=== PATIENT | female | born 1985 | race Caucasian/White ===

== ENCOUNTER 2019-01-15 18:55 | Inpatient (IN) | payer OTHER, SELFPAY ==
[2018-11-09 17:55] VITALS: BMI 39.7
[2019-01-15 19:35] VITALS: BMI 40.8
[2019-01-15] MEDS: Lactated Ringers 1,000 ML 50 ML IV ×2 (19:40→23:09)
[2019-01-15 19:59] LABS: Absolute Lymphocyte Count 1.48 X10^3/ul (0.83-4.51); Absolute Neutrophil Count 9.1 X10^3/uL (2.0-7.7); Basophil# 0.01 X10^3/uL; Basophil% 0.1 % (0-1); Eosinophil# 0.13 X10^3/uL; Eosinophils% 1.1 % (0-5); Hematocrit 32.3 % (37-47); Lymphocyte # 1.48 X10^3/ul (4.0); Lymphocyte % 12.5 % (19-41); Mean Corpuscular Hgb 22.3 pg (27.0-32.0); Mean Corpuscular Volume 72.1 fL (81-99); Mean Platelet Vol. 10.4 fl (6.2-12.0); Monocyte# 1.09 X10^3/uL; Monocyte% 9.2 % (0-10); Neutrophil # 9.07 X10^3/uL (2.7-7.7); Neutrophil % 76.8 % (47-70); POSITIVE COUNT NO; POSITIVE DIFFERENTIAL NO; POSITIVE MORPHOLOGY NO; Platelet Count 193 K/mm3 (150-450); RBC Distribution Width CV 16.4 % (11.6-14.6); RBC Distribution Width SD 43.5 fl (35.1-43.9); Red Blood Count 4.48 M/mm3 (4.2-5.4); White Blood Count 11.8 K/mm3 (4.4-11.0)
[2019-01-15] MEDS: 0.9% Normal Saline 100 ML IV.SOLN. INTRA-UTER (20:13)
--- NOTE | 2019-01-15 20:20 | HP.PCM_ITS ---
History Date of Admission: 01/15/19 Final RODNEY: 01/11/19 Final RODNEY Source: US <20 weeks Gestational age: 40 Weeks and 4 Days History of this : This is a 33 year-old, G [], P [], at 40 weeks gestational age. Medical History: Medical History (Last Updated 11/09/18 @ 20:46 by ISABELA Roche) GERD (gastroesophageal reflux disease) K21.9 Seasonal allergic rhinitis due to pollen J30.1 Allergies shellfish derived Allergy (Severe, Verified 01/15/19 19:31) Anaphylaxis amoxicillin Adverse Reaction (Verified 01/15/19 19:31) DEVELOPS THRUSH Home Medications: Home Medications aspirin 81 mg chewable tablet 81 mg PO DAILY 11/09/18 ferrous sulfate 325 mg (65 mg iron) tablet 325 mg PO DAILY tab 11/09/18 Cetirizine HCl [Zyrtec] 10 mg PO DAILY 01/15/19 Docosahexanoic Acid [ Dha] 200 mg PO 01/15/19 Esomeprazole Magnesium [Nexium 24Hr] 20 mg PO DAILY 01/15/19 Smoking Status: Never smoker Alcohol: None Number of Fetus(es): 1 Heart Tracing: Normal baseline, moderate variability, spontaneous accelerations, no dece lerations. Tocometer shows irregular contractions. Category 1 upon admission History Past Pregnancies: Past Pregnancies Delivery Date Name GA/Weeks Outcome Route Weight Gender Labor Length Anesthesia Delivery Location Provider FOB Expected Delivery Method: Spontaneous Vaginal Review of Systems Constitutional: Denies: Chills Eyes: Denies: Blurred vision, Vision Change HEENT: Denies: Head Aches Cardiovascular: Reports: Edema - ild. Denies: Chest Pain Respiratory: Denies: Shortness of Breath Neurological: Denies: Blurred vision, Double vision, Change in Speech, Confusion, Headaches Physical Exam General: Alert, Cooperative, No apparent distress Cardiovascular: Regular rate Lungs: Normal air movement Abdomen: Soft, Non Tender, Non-Distended, Appropriate for Gestational Age Extremities:: Other - trace edema Neurological: Cranial nerves II-XII grossly intact, Deep Tendon Reflexes 2+/4 and Symmetrical CERTIFIED TRAVEL COUNSELOR: Normal external genitalia Estimated gestational size: Appropriate for gestational size Presentation: Cephalic Cervix Dilation (cm): 1 - medium consistencey, mid position Station: -3 Effacement (%): 50 Assessment/Plan All Active Problems (Last Updated 11/09/18 @ 20:46 by Theresa Dai NP-[place]) Encounter for wellness examination (Acute) This is a 33 year-old, 3 para 2 female at 40-3/7 weeks gestation with elevated blood pressures in the office. Meets criteria for gestational hypertension. No evidence of preeclampsia. Some labs are still pending. Mild antepartum anemia. Risk benefits and alternatives to Yeager and Pitocin induction were discussed with the patient, her questions were answered to her satisfaction she desires to proceed. Estimated weight is less than 4500 g clinically and pelvis clinically adequate to expect vaginal delivery. May have epidural, nitrous oxide or Nubain as needed for pain control measures..
[2019-01-15 20:25] LABS: Partial Thromboplast Time 27.2 Seconds (24.1-36.2)
[2019-01-15 20:31] LABS: AST(SGOT) 12 U/L (15-37); Alanine Aminotransfer ALT/SGPT 11 U/L (13-56); Creatinine, Serum 0.57 mg/dL (0.55-1.02); EST Glomerular Filtration Rate 130 mL/min (>60); Est Glom Filt Rate - Afr Amer 157 mL/min (>60); Estimated Creatinine Clearance 126.32 ml/min; Uric Acid 4.1 mg/dL (2.6-6.0)
[2019-01-15] MEDS: Oxytocin 30 units/NS 500 ml 30 UNITS/500 ML IV.SOLN IV (20:42)
[2019-01-15] MEDS: Acetaminophen 325 MG Tablet PO (22:11)
--- NOTE | 2019-01-15 22:20 | EKG12_ITS ---
Test Reason : TACHYCARDIA Blood Pressure : / mmHG Vent. Rate : 114 BPM Atrial Rate : 114 BPM P-R Int : 138 ms QRS Dur : 088 ms QT Int : 340 ms P-R-T Axes : 037 013 017 degrees QTc Int : 468 ms Sinus tachycardia Otherwise normal ECG No previous ECGs available Confirmed by SANTOS ALVAREZ ([id number]), editor in chief RIANNA ALARCON ([id number]) on 01/18/2019 2:00:32 PM Referred By: tIalia Herrera Confirmed By:SANTOS ALVAREZ
[2019-01-16] MEDS: Ondansetron 4 MG/2 ML Vial IV ×3 (01:24→09:42)
[2019-01-16] MEDS: fentaNYL-bupivacaine (epidural) 100 ML BAG EPIDURAL ×3 (01:43→11:02)
[2019-01-16] MEDS: Lactated Ringers 1,000 ML 50 ML IV ×3 (01:52→08:40)
[2019-01-16] MEDS: Mag Hydrox/Al Hydrox/Simeth 30 ML UDC PO (03:11)
[2019-01-16] MEDS: Oxytocin 30 units/NS 500 ml 30 UNITS/500 ML IV.SOLN 334 UNITS IV (12:58)
--- NOTE | 2019-01-16 13:12 | PCM.OPRPT ---
Vaginal Delivery Maternal Presentation: Medically Indicated Induction Method of Induction: Pitocin, Yeager Bulb, Amniotomy Medical Reason for Induction: Gestational Hypertension Amniotic Membrane Rupture Type: Artificial Amniotic Fluid Description: Clear Final RODNEY: 01/11/19 Gestational age: 40 Weeks and 5 Days Date of Procedure: 01/16/19 Pre-Operative Diagnosis: Gestational hypertension Post-Operative Diagnosis: Same Surgery/ Procedure Performed: Spontaneous Vaginal Delivery Type of Anesthesia: Epidural Description of Procedure: Patient prepped & draped when c/c/+1. She pushed 2 times in stirrups to deliver the head. Shoulders & body easily followed. placed on maternal abdomen where 3VC clamped & cut in delayed fashion. Placenta delivered with gentle traction. Good uterine tone obtained. Presentation: ANDREA Placental Delivery Description: Spontaneous Placenta Disposition: [facility] Cord Vessel Description: 3 Vessels Cord Entanglement: Around neck x 1, loose Drain: Yeager to straight drain Estimated Blood Loss: 300ml Infant A gender: Male (1 minute): 8 (5 minute): 9 Episiotomy Description: None Laceration: Vaginal Extension/lac - repaired with 3-0 vicryl Medications given after delivery: IV Pitocin Complications: None
[2019-01-16] MEDS: Oxytocin 30 units/NS 500 ml 30 UNITS/500 ML IV.SOLN 167 UNITS IV (13:28)
[2019-01-16] MEDS: Ibuprofen 600 MG Tablet PO (15:16)
[2019-01-16 16:41] VITALS: BP 110/58; PULSE 124; RESP 16; TEMP 36.9; O2SAT 97
--- NOTE | 2019-01-16 19:31 | NURSING ---
this information given in bedside report per Tere MCBRIDE. this RN stated white catheter was removed at 1300 with clear, yellow urine draining into white bag. pt has voided once (200 cc) up to this point. will wait for one more void to remove saline lock.
[2019-01-16 20:34] VITALS: BP 116/85; PULSE 111; RESP 16; TEMP 36.9; O2SAT 99
[2019-01-16 23:31] VITALS: BP 134/81; PULSE 96; RESP 16; TEMP 36.2
[2019-01-17] MEDS: Acetaminophen 500 MG Tablet 1000 MG PO ×2 (02:20→10:08)
[2019-01-17 03:51] VITALS: BP 124/73; PULSE 93; RESP 16; TEMP 37.2
[2019-01-17 07:39] VITALS: BP 121/65; PULSE 106; RESP 16; TEMP 36.7; O2SAT 97
[2019-01-17 07:40] VITALS: PULSE 106
[2019-01-17] MEDS: Ibuprofen 600 MG Tablet PO (07:51)
[2019-01-17] MEDS: Dibucaine 30 GM Tube 1 APPLIC TOPICAL (07:52)
--- NOTE | 2019-01-17 08:13 | PCM.PN.OB ---
Subjective: pt seen at bedside, doing well. pt reports good pain control. lochia mild. bottle feeding. - Physical Exam General: Alert, Oriented x3 Abdomen: Soft, Non Tender, Non-Distended, - - fundus firm Extremities: No Calf Tenderness Vital Signs Temp Pulse Resp BP Pulse Ox 98.0 F 106 H 16 121/65 H 97 01/17/19 07:39 01/17/19 07:40 01/17/19 07:39 01/17/19 07:39 01/17/19 07:39 Oxygen Delivery Method Room Air Weight: 111.2 kg Body Mass Index (BMI) 40.8 Intake and Output for Last 24 Hours 01/15/19 01/16/19 01/17/19 23:59 23:59 23:59 Intake Total 4083 / 4083 Output Total 1825 / 1825 Balance 2258 / 2258 Laboratory Tests Past 24 Hrs 01/16/19 15:20 Screen NEGATIVE Baby's Blood Type O POSITIVE Baby's ANGELITO NEGATIVE Medical Necessity - Tobacco Use Smoking Status: Never smoker Assessment/Plan All Active Problems (Last Updated 11/09/18 @ 20:46 by Theresa Dai NP-C) Encounter for wellness examination (Acute) PPD#1, doing well routine care pain mgmt [place] [facility]
--- NOTE | 2019-01-17 08:16 | DCINST_ITS ---
Discharge Diet: No Restrictions Discharge Activity: Return to Normal Activity, May not drive while taking narcotic pain medications., May Shower May resume sexual activity in: 4-6 weeks Additional Activity Instructions:: Nothing in the vagina for 4-6 weeks. You may return to work/school in 6 weeks. Call your doctor if your incision/area has: Continuous Slow Oozing, Sudden Increased Bleeding, Increased Pain/ Swelling, Increased Redness, Foul Smelling Discharge Additional Instructions: If you experience any of the following, contact your healthcare provider. * Bleeding that soaks a pad every hour for 2 hours * Fever 100.4 or higher * Unrelieved incision or abdominal pain * Swelling, redness, discharge or bleeding from your incision or episiotomy site * Your incision begins to separate * Problems urinating (including inability to urinate or burning while urinating). * Visual changes * Severe headache * Flu-like symptoms * Pain or redness in one of both of your breasts * Pain, warmth, tenderness or swelling in your legs, especially the calf area * Frequent nausea and vomiting * Symptoms of depression or anxiety If you experience any of the following, call 911 or go to the nearest Emergency Room. * Chest pain * Problems breathing * Seizure activity * Partial or complete paralysis of a body part, slurred speech, weakness or drooping of the face, or a sudden inability to walk or hold your balance Allergies/Adverse Reactions: Allergies shellfish derived Allergy (Severe, Verified 01/15/19 19:31) Anaphylaxis amoxicillin Adverse Reaction (Verified 01/15/19 19:31) DEVELOPS THRUSH Medications to take at Discharge ferrous sulfate 325 mg (65 mg iron) tablet 325 mg PO DAILY tab 11/09/18 Cetirizine HCl [Zyrtec] 10 mg PO DAILY 01/15/19 Docosahexanoic Acid [ Dha] 200 mg PO 01/15/19 Esomeprazole Magnesium [Nexium 24Hr] 20 mg PO DAILY 01/15/19 Ibuprofen [Motrin] 600 mg PO Q6H PRN PRN #30 tab 01/17/19 The following prescriptions were given: Ibuprofen [Motrin] 600 mg PO Q6H PRN PRN #30 tab PRN Reason: Mild Pain (-09/17) Transmission Status: P[facility] to [facility] When: Call to make an appointment with your doctor in 6 weeks. If you had elevated Blood Pressure or 4th degree laceration you will need to be seen in 2 weeks. Primary Care Physician: Care Physician,No Primary [Primary Care Provider] - Test Results: Test results from this visit will be discussed in further detail at your follow- up appointment, if applicable.
[2019-01-17] MEDS: Senna/Docusate Sodium 1 Tablet PO (10:12)
[2019-01-17 12:04] VITALS: BP 119/68; PULSE 98; RESP 16; TEMP 36.7; O2SAT 98
[2019-01-17 16:29] VITALS: BP 122/80; PULSE 97; RESP 16; TEMP 36.7; O2SAT 99
== END 2019-01-17 16:55 | disposition home or self-care (01) | DRG 807 ==
PROVIDERS: Admitting Provider Obstetrics & Gynecology; Referring Provider Obstetrics & Gynecology; Visit Provider Obstetrics & Gynecology
DX: O13.4 Gestational [pregnancy-induced] hypertension without significant proteinuria, complicating childbirth (principal); Z37.0 Single live birth; Z3A.40 40 weeks gestation of pregnancy; O99.02 Anemia complicating childbirth; D64.9 Anemia, unspecified; Z79.82 Long term (current) use of aspirin; J30.1 Allergic rhinitis due to pollen; K21.9 Gastro-esophageal reflux disease without esophagitis; O69.81X0 Labor and delivery complicated by cord around neck, without compression, not applicable or unspecified; O70.0 First degree perineal laceration during delivery
CPT/HCPCS: 59050; 82565; 84450; 84460; 84550; 85025; 85461; 85610; 85730; 86850; 86900; 90384; 93005; 99218; J7120; G0378; J2405; J2790

== ENCOUNTER → 2019-12-25 20:39 | Outpatient (CLI) | payer OTHER, SELFPAY ==
[2019-12-25 17:39] VITALS: BMI 40.6
[2019-12-25 21:27] LABS: Thyroid Stim Hormone (TSH) 0.99 uIU/mL (0.358-3.74)
== END ==
PROVIDERS: Referring Provider Nurse Practitioner; Visit Provider Nurse Practitioner
DX: R00.0 Tachycardia, unspecified (principal)
CPT/HCPCS: 84443